=== PATIENT | male | born 1970 | race Caucasian/White ===

== ENCOUNTER → 2023-12-01 07:02 | Outpatient (REF) | payer BC, SELFPAY | LOC: RAD 07:02 | PROVIDERS: ATTENDING PHYSICIAN Family Medicine | DX: Z87.891 Personal history of nicotine dependence (principal) | CPT/HCPCS: 71271 ==

== ENCOUNTER → 2023-12-17 19:31 | Outpatient (REF) | payer BC, SELFPAY | LOC: MRI 3T 19:31 | PROVIDERS: ATTENDING PHYSICIAN Surgery; FAMILY PHYSICIAN Family Medicine | DX: R97.20 Elevated prostate specific antigen [PSA] (principal) | CPT/HCPCS: 72197; A9575 ==

== ENCOUNTER → 2024-02-24 13:42 | Outpatient (REF) | payer BC, SELFPAY | LOC: RCS 13:42 | PROVIDERS: ATTENDING PHYSICIAN Urology; FAMILY PHYSICIAN Family Medicine | DX: Z01.818 Encounter for other preprocedural examination (principal) | CPT/HCPCS: 93005 ==

== ENCOUNTER 2024-04-21 14:09 | Outpatient (RCR) | payer BC, SELFPAY | END 2024-04-21 23:59 | disposition home or self-care (01) | LOC: RPT 14:09 | PROVIDERS: ATTENDING PHYSICIAN Surgery; FAMILY PHYSICIAN Family Medicine | DX: R39.15 Urgency of urination (principal); C61 Malignant neoplasm of prostate; Z73.6 Limitation of activities due to disability | CPT/HCPCS: 97110; 97161; 97530 ==

== ENCOUNTER 2024-06-13 21:39 | Emergency (ER) | payer BC, SELFPAY ==
[2024-06-13 21:51] VITALS: BP 128/71
--- NOTE | 2024-06-13 22:43 | ED.GENMED ---
History of Present Illness
<Aline Walsh PA-C - Last Filed: 06/14/24 00:54>
General
Chief Complaint: Extremity Pain (non-traumatic)
Source: patient
Exam Limitations: none
Time Seen by Provider: 06/13/24 22:14
Nursing documentation reviewed up to this point in time: agreed with
History of Present Illness
History of Present Illness:
Patient is a 53-year-old male presenting to the emergency department for evaluation of right thigh pain. He states pain initially started around 11 AM today. Pain is located in his right posterior medial thigh worse with movement and weightbearing.
Patient denies any numbness/tingling in right lower extremity. No known injury. Patient denies any fevers or other infectious symptoms.
Patient did recently have a prostatectomy due to prostate cancer and was placed on a month-long course of prophylactic Eliquis which he stopped on Thursday. Patient concerned that he may have a DVT. Patient denies any shortness of breath, or
lightheadedness.
Does note that his father has a history of DVT/PE after his prostatectomy.
Past History
<Aline Walsh PA-C - Last Filed: 06/14/24 00:54>
Past History
ED Past Medical History: Arrthythmia (Afib with NSR since 2016), GERD and Hypercholesterolemia
ED Past Surgical History: None
Social History
Tobacco: Non-smoker
Alcohol: None
Personal:
Living: with family
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
Review of Systems
<Aline Walsh PA-C - Last Filed: 06/14/24 00:54>
Review of Systems
Allergies reviewed?: Yes
All Other Systems: ROS reviewed and negative except as documented in HPI and ROS
Phy Exam
<Aline Walsh PA-C - Last Filed: 06/14/24 00:54>
Physical Exam
Physical Exam:
Vitals: Patient's vital signs are stable. Afebrile
General: Patient is well appearing, no acute distress
Skin: Warm and dry, no rashes or lesions
Head: Normocephalic, atraumatic
Throat: Protecting airway
Neck: Normal ROM, no cervical spine tenderness
Cardiac: Regular rate
Pulm: No apparent respiratory distress. Lungs clear bilaterally. Not hypoxic or tachypneic
Abdomen: Nondistended
Extremities: Right lower extremity atraumatic. No obvious deformity. Very mild tenderness along right posterior medial thigh without any warmth. No red streaking. Excellent range of motion in right knee and right hip without pain. Negative
Homans' sign. Sensation fully intact in RLE. Palpable DP, PT, and femoral pulse.
Neuro: Grossly intact
Psychiatric: Normal affect.
Course
<Aline Walsh PA-C - Last Filed: 06/14/24 00:54>
Orders/Labs/Results
Orders:
Orders
06/13/24 22:37
US Legs, Right [US Periph Venous LOWER Ext RT] Urgent
Comment: hx DVT
Reason For Exam: pain right thigh
Vital Signs
Initial and Last Documented VS:
Initial Vital Signs
Temp Pulse Resp BP Pulse Ox
98.5 F 78 18 128/71 99
06/13/24 21:51 06/13/24 21:51 06/13/24 21:51 06/13/24 21:51 06/13/24 21:51
Last Documented Vital Signs
Temp Pulse Resp BP Pulse Ox
98.5 F 78 18 128/71 99
06/13/24 21:51 06/13/24 21:51 06/13/24 21:51 06/13/24 21:51 06/13/24 21:51
<Donte Mak DO - Last Filed: 06/14/24 00:24>
Orders/Labs/Results
Orders:
Orders
06/13/24 22:37
US Legs, Right [US Periph Venous LOWER Ext RT] Urgent
Comment: hx DVT
Reason For Exam: pain right thigh
Vital Signs
Initial and Last Documented VS:
Initial Vital Signs
Temp Pulse Resp BP Pulse Ox
98.5 F 78 18 128/71 99
06/13/24 21:51 06/13/24 21:51 06/13/24 21:51 06/13/24 21:51 06/13/24 21:51
Last Documented Vital Signs
Temp Pulse Resp BP Pulse Ox
98.5 F 78 18 128/71 99
06/13/24 21:51 06/13/24 21:51 06/13/24 21:51 06/13/24 21:51 06/13/24 21:51
<Aline Walsh PA-C - Last Filed: 06/14/24 00:54>
MDM/Problems Addressed
Differential Diagnosis Includes:
Not limited to: Muscle strain, muscle spasm, DVT, neuropathy, etc.
MDM/Problems Addressed:
53-year-old male presenting with mild pain to right thigh which he initially noticed earlier today. Pain is not worse with movement and weightbearing. Patient recently completed course of prophylactic dose of Eliquis following prostatectomy about
1 month ago. He is concerned for possible DVT. No chest pain, shortness of breath. No fevers or other infectious symptoms. No numbness/tingling in affected leg. Patient arrives with stable vital signs. He is afebrile on exam�patient is very
well-appearing in no apparent distress. Right lower extremity atraumatic with no joint tenderness. Very mild reproducible tenderness right posterior medial thigh without any overlying erythema, warmth, rash. Do not suspect infectious process.
Patient is neurovascularly intact with palpable distal pulses. An ultrasound was obtained which shows no evidence of DVT in right lower extremity. It is possible that this is a muscle strain. However�given symptoms did just start today discussed
with patient possible need for repeat ultrasound to evaluate for DVT if symptoms persist/worsen. Will hold anticoagulation for now given suspicion for DVT low. Return precaution discussed at length. Patient will follow with primary care
Chronic conditions affecting care:
Prostate cancer
Acute Exacerbation and/or Progression of Chronic Illness:
N/A
<Aline Walsh PA-C - Last Filed: 06/14/24 00:54>
*Radiology
Radiology exam reviewed: radiology read reviewed
*Pulse Oximetry
Patient hypoxic: no
*EKG
Interpreted by ED Provider?: NA
*Solar Manager Interpretation
Rate: Solar Manager- N/A
*Critical Care Note
Total Time (30-74mins, 75-104mins- exclusive of procedures): Not Applicable
ED Attending Note
<Aline Walsh PA-C - Last Filed: 06/14/24 00:54>
-
Portions of this chart may have been created with voice recognition software.� Occasional wrong word or��sound alike� substitutions may have occurred due to the inherent limitations of voice recognition software.
<Donte Mak DO - Last Filed: 06/14/24 00:24>
ED Attending Note
Patient seen and examined by attending physician: Yes
I performed the substantive portion of visit, reviewed & personally made and approve the management plan that is documented in note by myself or CRISTINA.: Yes
ED Attending Note:
Patient is a 53-year-old male who had a recent prostatectomy and stopped his Eliquis 3 days ago. Today the patient developed right medial thigh pain. Patient denies any injuries. Patient denies any increased pain with weightbearing or movement.
Patient denies any chest pain or shortness of breath. Patient had a robotic prostatectomy with lymph node dissection. Patient is on aspirin. On physical exam the patient does not appear to be any distress. Right thigh is minimally reproducible
tenderness on the medial aspect. No swelling, erythema or mass. Neurovascularly and tendons intact. Ultrasound is unremarkable. Discussed it with the patient. At this point with a negative ultrasound would not anticoagulate the patient.
However if the pain persist he may need a repeat ultrasound looking for clot. Patient is going to follow-up with his doctor in the next couple days.
Discharge Plan
Departure
Patient Disposition: Home (Routine Discharge)
Date of Disposition: 06/14/24
Time of Disposition: 00:07
Patient with high blood pressure during this ER visit?: No
Condition: Good
Covid-19: Not Applicable
Discharge Problem:
Acute pain of right thigh
Instructions: Muscle and Bone Pain (DC)
Prescriptions:
No Action
atorvastatin 20 MG tablet
20 mg PO QPM
omeprazole 40 MG capsule,delayed release(DR/EC)
40 mg PO DAILY
aspirin 81 MG tablet,chewable
81 mg PO DAILY
metoprolol succinate 25 MG tablet extended release 24 hr
25 mg PO DAILY
flecainide 50 mg Tablet
50 mg PO Q8H PRN (Reason: A.fib)
coenzyme Q10 [CoQ-10] 30 mg Capsule
30 mg PO DAILY
cholecalciferol (vitamin D3) [Vitamin D3] 25 mcg (1,000 unit) Capsule
25 mcg PO DAILY
Fish Oil
1 cap PO DAILY
Referrals:
Donte Kaiser DO [Family Provider] - Follow up in 5-7 days
Activity Restrictions/Additional Instructions:
You may use heat to the area for 20 to 30 minutes 4-5 times a day. Acetaminophen 1000 mg or ibuprofen 400 mg every 6 hours for pain. If it persists or becomes worse you may need a repeat ultrasound. Make sure to follow-up with your family
physician or return to the emergency department.
Interventions
Interventions:
*Risk Screen - Suicide Last Done: 06/13/24 21:51
*General Assessment Last Done: 06/13/24 23:38
*Neglect/Abuse Screening Last Done: 06/13/24 21:51
*ED COVID-19 Vaccine History Last Done: 06/13/24 23:38
*Nursing Disposition Last Done: 06/14/24 00:11
ED-Skin Assessment Last Done: 06/13/24 22:38
ED-Peripheral Vascular Assessment Last Done: 06/13/24 22:38
ED-Musculoskeletal Assessment Last Done: 06/13/24 22:38
Discharge Date and Time
Discharge Date/Time: 06/14/24 00:22
Print Language: HUNGARIAN
== END 2024-06-14 00:22 | disposition home or self-care (01) ==
LOC: EMR 21:39
PROVIDERS: EMERGENCY PHYSICIAN Emergency Medicine; FAMILY PHYSICIAN Family Medicine
DX: M79.651 Pain in right thigh (principal); I48.91 Unspecified atrial fibrillation; K21.9 Gastro-esophageal reflux disease without esophagitis; E78.00 Pure hypercholesterolemia, unspecified; Z79.82 Long term (current) use of aspirin; C61 Malignant neoplasm of prostate; Z90.79 Acquired absence of other genital organ(s)
CPT/HCPCS: 99284; 93971

== ENCOUNTER 2024-06-24 14:59 | Outpatient (RCR) | payer BC, SELFPAY | END 2024-06-24 23:59 | disposition home or self-care (01) | LOC: RPT 14:59 | PROVIDERS: ATTENDING PHYSICIAN Surgery; FAMILY PHYSICIAN Family Medicine | DX: R39.15 Urgency of urination (principal); C61 Malignant neoplasm of prostate; N39.46 Mixed incontinence; Z73.6 Limitation of activities due to disability; Z90.79 Acquired absence of other genital organ(s); Z98.890 Other specified postprocedural states | CPT/HCPCS: 97110; 97112; 97164; 97530 ==

== ENCOUNTER 2024-07-26 18:15 | Outpatient (RCR) | payer BC, SELFPAY | END 2024-07-26 23:59 | disposition home or self-care (01) | LOC: RPT 18:15 | PROVIDERS: ATTENDING PHYSICIAN Surgery; FAMILY PHYSICIAN Family Medicine | DX: C61 Malignant neoplasm of prostate (principal); N39.46 Mixed incontinence; Z73.6 Limitation of activities due to disability; Z90.79 Acquired absence of other genital organ(s); Z98.890 Other specified postprocedural states; R39.15 Urgency of urination | CPT/HCPCS: 97110; 97112; 97140 ==

== ENCOUNTER 2024-08-23 18:07 | Outpatient (RCR) | payer BC, SELFPAY | END 2024-08-23 23:59 | disposition home or self-care (01) | LOC: RPT 18:07 | PROVIDERS: ATTENDING PHYSICIAN Surgery; FAMILY PHYSICIAN Family Medicine | DX: N39.46 Mixed incontinence (principal); C61 Malignant neoplasm of prostate; Z73.6 Limitation of activities due to disability; Z90.79 Acquired absence of other genital organ(s); Z98.890 Other specified postprocedural states; R39.15 Urgency of urination | CPT/HCPCS: 97110; 97112 ==

== ENCOUNTER 2024-09-13 16:05 | Outpatient (RCR) | payer BC, SELFPAY | END 2024-09-13 23:59 | disposition home or self-care (01) | LOC: RPT 16:05 | PROVIDERS: ATTENDING PHYSICIAN Surgery; FAMILY PHYSICIAN Family Medicine | DX: N39.46 Mixed incontinence (principal); C61 Malignant neoplasm of prostate; Z73.6 Limitation of activities due to disability; Z90.79 Acquired absence of other genital organ(s); Z98.890 Other specified postprocedural states; R39.15 Urgency of urination | CPT/HCPCS: 97110; 97112 ==

== ENCOUNTER 2024-10-25 19:04 | Outpatient (RCR) | payer BC, SELFPAY | END 2024-10-25 23:59 | disposition home or self-care (01) | LOC: RPT 19:04 | PROVIDERS: ATTENDING PHYSICIAN Surgery; FAMILY PHYSICIAN Family Medicine | DX: N39.46 Mixed incontinence (principal); C61 Malignant neoplasm of prostate; Z73.6 Limitation of activities due to disability; Z90.79 Acquired absence of other genital organ(s); Z98.890 Other specified postprocedural states; R39.15 Urgency of urination | CPT/HCPCS: 97110; 97112 ==

== ENCOUNTER 2024-11-22 19:06 | Outpatient (RCR) | payer BC, SELFPAY | END 2024-11-22 23:59 | disposition home or self-care (01) | LOC: RPT 19:06 | PROVIDERS: ATTENDING PHYSICIAN Surgery; FAMILY PHYSICIAN Family Medicine | DX: N39.46 Mixed incontinence (principal); C61 Malignant neoplasm of prostate; Z73.6 Limitation of activities due to disability; R39.15 Urgency of urination; Z90.79 Acquired absence of other genital organ(s); Z98.890 Other specified postprocedural states | CPT/HCPCS: 97110; 97112; 97164; 97530 ==

== ENCOUNTER 2024-12-22 16:31 | Outpatient (RCR) | payer BC, SELFPAY | END 2024-12-22 23:59 | disposition home or self-care (01) | LOC: RPT 16:31 | PROVIDERS: ATTENDING PHYSICIAN Surgery; FAMILY PHYSICIAN Family Medicine | DX: N39.46 Mixed incontinence (principal); C61 Malignant neoplasm of prostate; Z73.6 Limitation of activities due to disability; R39.15 Urgency of urination; Z90.79 Acquired absence of other genital organ(s); Z98.890 Other specified postprocedural states | CPT/HCPCS: 97110; 97112 ==

== ENCOUNTER 2025-01-17 18:09 | Outpatient (RCR) | payer BC, SELFPAY | END 2025-01-17 23:59 | disposition home or self-care (01) | LOC: RPT 18:09 | PROVIDERS: ATTENDING PHYSICIAN Surgery; FAMILY PHYSICIAN Family Medicine | DX: N39.46 Mixed incontinence (principal); C61 Malignant neoplasm of prostate; Z73.6 Limitation of activities due to disability; R39.15 Urgency of urination; M54.12 Radiculopathy, cervical region; Z90.79 Acquired absence of other genital organ(s); Z98.890 Other specified postprocedural states | CPT/HCPCS: 97110; 97112; 97140; 97530 ==

== ENCOUNTER → 2025-03-24 15:02 | Outpatient (REF) | payer BC, SELFPAY | LOC: HWRCS 15:02 | PROVIDERS: ATTENDING PHYSICIAN Internal Medicine Cardiovascular Disease; FAMILY PHYSICIAN Family Medicine | DX: I48.0 Paroxysmal atrial fibrillation (principal) | CPT/HCPCS: 93306 ==